=== PATIENT | male | born 1970 ===

== ENCOUNTER → 2025-07-29 15:32 | Outpatient (REF) | payer OTHER, SELFPAY | LOC: HWRCS 15:32 | PROVIDERS: ATTENDING PHYSICIAN Internal Medicine Cardiovascular Disease; FAMILY PHYSICIAN Student in an Organized Health Care Education/Training Program | DX: I25.10 Atherosclerotic heart disease of native coronary artery without angina pectoris (principal); I21.3 ST elevation (STEMI) myocardial infarction of unspecified site | CPT/HCPCS: 93306 ==

== ENCOUNTER → 2025-08-05 12:11 | Outpatient (REF) | payer OTHER, SELFPAY ==
--- NOTE | 2025-08-05 14:01 | CARDSERVLU ---
Echocardiogram with Lumason completed after protocol screening completed. Allergies verified.
Patent IV site: _Rt FA____
IV site flushed with 0.9% NaCl pre and post administration.
Diluted bolus method utilized to enhance visualization of ventricular pyle.
Total volume given: __3.0__ mL
Patient tolerated all procedures well without complications.
== END ==
LOC: RCS 12:11
PROVIDERS: ATTENDING PHYSICIAN Internal Medicine Cardiovascular Disease; FAMILY PHYSICIAN Student in an Organized Health Care Education/Training Program
DX: I21.3 ST elevation (STEMI) myocardial infarction of unspecified site (principal); I25.5 Ischemic cardiomyopathy; R93.1 Abnormal findings on diagnostic imaging of heart and coronary circulation
CPT/HCPCS: 93308; Q9950

== ENCOUNTER → 2025-09-26 08:22 | Outpatient (REF) | payer OTHER, SELFPAY | LOC: MRI 08:22 | PROVIDERS: ATTENDING PHYSICIAN Internal Medicine Cardiovascular Disease; FAMILY PHYSICIAN Student in an Organized Health Care Education/Training Program | DX: I42.9 Cardiomyopathy, unspecified (principal) | CPT/HCPCS: 75561; 75565; A9585 ==